=== PATIENT | male | born 1970 | race Asian ===

== ENCOUNTER 2023-10-26 09:32 | Inpatient (IN) | payer MEDICAID ==
[~2023-10-26] VITALS: Ht 165.1 cm; Wt 65.9 kg
[2023-10-26 09:50] VITALS: BP 146/80; PULSE 84; RESP 20; TEMP 97.8; O2SAT 100
[2023-10-26] MEDS ORDERED: ACETAMINOPHEN 325 MG TABLET PO PRN (11:00)
[2023-10-26] MEDS ORDERED: TUBERCULIN, PURIFIED PROTEIN DERIVATIVE 5 TU/0.1 ML SYRINGE ID ONE (11:00)
[2023-10-26] MEDS ORDERED: HydrOXYzine PAMOATE 50 MG CAPSULE PO PRN (11:00)
[2023-10-26] MEDS ORDERED: ZOLPIDEM TARTRATE 10 MG TABLET PO PRN (11:00)
[2023-10-26] MEDS ORDERED: LOPERAMIDE HCL 2 MG CAPSULE PO PRN (11:00)
[2023-10-26] MEDS ORDERED: GuaiFENesin/D-METHORPHAN [SUGAR-FREE] 200-20MG/10 ML SYRUP UDCUP PO PRN (11:00)
[2023-10-26] MEDS ORDERED: MAG HYDROX/ALUMINUM HYD/SIMETH ES 30 ML SUSPENSION UDCUP PO PRN (11:00)
[2023-10-26] MEDS ORDERED: PROMETHAZINE HCL 25 MG TABLET PO PRN (11:00)
[2023-10-26] MEDS ORDERED: MAGNESIUM HYDROXIDE SUSPENSION 30 ML UDCUP PO PRN (11:00)
[2023-10-26 11:51] LABS: GLUCOMETER DEV NAME(LOC) POC.BV; POC SARS-COV2 AG, FIA NEGATIVE (NEGATIVE)
[2023-10-26] MEDS ORDERED: PNEUMOCOCCAL VACCINE POLYVALENT 0.5 ML SYRINGE [PPSV23] IM. ONE (17:00)
[2023-10-26] MEDS: THIAMINE 100 MG TABLET PO SCH (18:35)
[2023-10-26] MEDS: CloNIDine HCL 0.1 MG TABLET PO PRN (18:36)
[2023-10-26] MEDS ORDERED: DIVALPROEX SODIUM 500 MG ER TABLET PO SCH (21:00)
[2023-10-26] MEDS ORDERED: OLANZapine 5 MG RAPDIS TABLET PO SCH (21:00)
[2023-10-26] MEDS: ZOLPIDEM TARTRATE 10 MG TABLET PO SCH (21:32)
[2023-10-26] MEDS: MIRTAZAPINE 15 MG TABLET PO SCH (21:32)
[2023-10-26] MEDS: MELATONIN 5 MG TABLET PO SCH (21:32)
[2023-10-27 08:20] VITALS: BP 139/86; PULSE 90; RESP 19; TEMP 97.5; O2SAT 100
[2023-10-27 08:45] LABS: HEMOGLOBIN A1C 5.8 % (3.8-5.6)
[2023-10-27] MEDS ORDERED: NALTREXONE HCL 50 MG TABLET PO SCH (09:00)
[2023-10-27 09:04] LABS: CHOL/HDL RATIO 2.6 (4.2-7.3); FREE T4 (FREE THYROXINE) 0.96 ng/dL (0.76-1.46); THYROID STIMULATING HORMONE 2.09 uIU/mL (0.36-3.74)
[2023-10-27] MEDS: MULTIVITAMINS WITH MINERALS, THERAPEUTIC TABLET PO SCH (09:11)
[2023-10-27] MEDS: FOLIC ACID 1 MG TABLET PO SCH (09:11)
[2023-10-27] MEDS ORDERED: DiphenhydrAMINE HCL 50 MG/ML VIAL ONE (13:40)
[2023-10-27] MEDS ORDERED: LORazepam 2 MG/ML VIAL ONE (13:41)
[2023-10-27] MEDS ORDERED: HALOPERIDOL LACTATE 5 MG/ML VIAL ONE (13:41)
[2023-10-27] MEDS: LORazepam 2 MG TABLET PO PRN (13:47)
[2023-10-27] MEDS: HALOPERIDOL LACTATE 5 MG/ML VIAL IM ONE (13:54)
[2023-10-27] MEDS: DiphenhydrAMINE HCL 50 MG/ML VIAL IM ONE (13:54)
[2023-10-27] MEDS: LORazepam 2 MG/ML VIAL IM ONE (13:54)
[2023-10-28] MEDS: OLANZapine 5 MG RAPDIS TABLET PO PRN (08:14)
[2023-10-28 08:21] VITALS: BP 112/67; PULSE 66; RESP 18; TEMP 97.5; O2SAT 100
[2023-10-28] MEDS ORDERED: MELA5TAB40 PO (14:47)
[2023-10-28] MEDS ORDERED: MIRT-89 PO (14:47)
[2023-10-28 20:54] VITALS: BP 120/83; PULSE 100; RESP 20; TEMP 98.1; O2SAT 98
[2023-10-28] MEDS: MIRTAZAPINE 30 MG TABLET PO SCH (21:32)
[2023-10-29 08:59] VITALS: BP 132/90; PULSE 95; RESP 17; TEMP 98.1; O2SAT 97
== END 2023-10-29 10:50 | disposition home or self-care (01) | DRG 751 ==
LOC: B2S 16:47
PROVIDERS: ADMIT Psychiatry & Neurology Psychiatry; ATTEND Psychiatry & Neurology Psychiatry
PROC: GZHZZZZ Group Psychotherapy (ICD-10-PCS; principal; 2023-10-26)
PROC: GZ51ZZZ Individual Psychotherapy, Behavioral (ICD-10-PCS; 2023-10-26)
DX: F32.3 Major depressive disorder, single episode, severe with psychotic features (principal); F41.1 Generalized anxiety disorder; I10 Essential (primary) hypertension; Z20.822 Contact with and (suspected) exposure to COVID-19
CPT/HCPCS: 80061; 83036; 84439; 84443; 86592; J1200; J1630; J2060; Q9967; 36415-L1; 36415-TC; Z7610

== ENCOUNTER 2023-10-26 11:29 | Emergency (ER) | payer MEDICAID, OTHER ==
[~2023-10-26] VITALS: Ht 165.1 cm; Wt 70.0 kg
[2023-10-26 11:35] VITALS: TEMP 97.8
[2023-10-26 13:21] LABS: BASOPHILS % (AUTO) 0.4 % (0.0-2.0); EOSINOPHILS % (AUTO) 0.7 % (1.0-6.0); HEMATOCRIT 41.6 % (41-53); HEMOGLOBIN 13.9 g/dL (13.5-17.5); LYMPHOCYTES # (AUTO) 1.7 K/uL (1.0-4.8); MEAN CORPUSCULAR HEMOGLOBIN 31.9 pg (26.0-34.0); MEAN CORPUSCULAR HGB CONC 33.3 G/dL (31.0-37.0); MEAN CORPUSCULAR VOLUME 96 fL (80-100); MONOCYTES # (AUTO) 0.7 K/uL (0.1-1.0); MONOCYTES % (AUTO) 7.6 % (2.0-9.0); NEUTROPHILS # (AUTO) 6.3 K/uL (1.8-7.7); NEUTROPHILS % (AUTO) 72.3 % (40.0-70.0); PLATELET COUNT (AUTO) 242 K/uL (150-450); RED BLOOD CELL COUNT(AUTO) 4.34 MIL/uL (4.50-5.90); RED CELL DISTRIBUTION WIDTH 12.8 % (11.5-14.5); WHITE BLOOD COUNT (AUTO) 8.8 K/uL (4.5-11.0)
[2023-10-26 13:31] LABS: ANION GAP 6 mmol/L (8-16); CARBON DIOXIDE 30 mmol/L (22-29); CHLORIDE 100 mmol/L (98-107); CREATININE 0.82 mg/dL (0.60-1.30); GLOMERULAR FILTR. RATE CALC > 60 mL/min (>60); GLUCOSE,RANDOM 129 mg/dL (70-110); POTASSIUM 3.5 mmol/L (3.5-5.1); SODIUM SERUM 136 mmol/L (136-145); UREA NITROGEN, BLOOD 8 mg/dL (7-18)
[2023-10-26 13:39] LABS: ALCOHOL, BLOOD (SERUM) < 3 mg/dL (0-10)
[2023-10-26 15:29] VITALS: BP 136/71; PULSE 84; RESP 18
[2023-10-26 16:10] LABS: ALCOHOL, URINE DRUG SCREEN NEGATIVE (NEGATIVE); AMPHET/METH SCREEN,URINE NEGATIVE (NEGATIVE); BARBITURATE SCREEN, URINE NEGATIVE (NEGATIVE); BENZODIAZEPINES SCREEN,URINE NEGATIVE (NEGATIVE); CANNABINOID SCREEN,URINE NEGATIVE (NEGATIVE); COCAINE SCREEN,URINE NEGATIVE (NEGATIVE); METHADONE SCREEN, URINE NEGATIVE (NEGATIVE); OPIATE SCREEN,URINE NEGATIVE (NEGATIVE); PHENCYCLIDINE SCREEN,URINE NEGATIVE (NEGATIVE)
== END 2023-10-26 15:44 | disposition home or self-care (01) ==
LOC: EMS 11:31
DX: F29 Unspecified psychosis not due to a substance or known physiological condition (principal); I10 Essential (primary) hypertension
CPT/HCPCS: 99285; 80048; 85025; 36415; 80307; G0480